=== PATIENT | female | born 1980 | race Caucasian/White ===

== ENCOUNTER 2017-09-07 18:42 | Emergency (ER) | payer OTHER ==
[2016-07-20 16:02] VITALS: Ht 162.6 cm; Wt 53.5 kg
[~2017-09-07] VITALS: Ht 162.6 cm; Wt 53.5 kg
[~2017-09-07 18:42] MED LIST: CALC500T6 PO; CEPH-13 PO; IBUP800T37 PO; LOR5/325 PO; MULT-1335 PO; ONDA4TAB PO; OTC THYROID SUPP; PREN-123 PO; TRAM-627 PO; [UNRECOGNIZED DRUG - OTHER]
[2017-09-07] MEDS ORDERED: OMEP-125 PO (18:54)
[2017-09-07] MEDS ORDERED: [UNRECOGNIZED DRUG - CODE] PO (18:54)
[2017-09-07] MEDS ORDERED: SERT-1 PO (18:54)
[2017-09-07] MEDS ORDERED: ONDANSETRON 4 MG/2 ML VIAL IVP ONE (19:10)
[2017-09-07] MEDS ORDERED: FAMOTIDINE(*) 20MG/50ML PREMIX 50 ML IVPB ONE (19:10)
[2017-09-07] MEDS ORDERED: KETOROLAC 30 MG/ML VIAL IM ONE (19:10)
[2017-09-07] MEDS ORDERED: NS(*) 0.9% 1000 ML BAG 1,000 ML IV ONE (19:10)
[2017-09-07 19:33] LABS: PLATELET COUNT, AUTOMATED 131 K/uL (150-450)
--- NOTE | 2017-09-07 20:29 | ER Report ---
History and Physical Time Seen By MD: 19:00 Hx. of Stated Complaint: PATIENT HAS BEEN VOMITING AND HAVING PAIN ON AND OFF SINCE August, PAIN IN RIGHT UPPER QUADRANT AND RADIATES TO SHOULDER, PATIENT IS SCHEDULED FOR A SCOPE BUT IT ISN'T FOR 2WEEKS, BUT SHE CAN'T HANDLE THE VOMITING AND PAIN. PATIENT DOES NOT HAV A GALLBLADDER. HPI/ROS This is an otherwise healthy 37-year-old female who is 10 years status post lap kana. She was in her usual state of health until August 14 when she started to experience midepigastric and right upper quadrant pain as well as nausea and vomiting. She was seen in the emergency department and treated supportively for her symptoms. She continued to have the symptoms intermittently and was seen in the emergency Department 2nd time. She started to take a PPI as well as adjust her diet. She started to feel better until earlier today when she ate pineapple apples and carrots and then experienced severe 10 out of 10 midepigastric and right upper quadrant pain radiating to the right shoulder. She says this is the worst episode of pain that she has had during the past month. She is scheduled to have an endoscopy in [address] Hernandez, but is worried about the source of the pain. No fever or chills. No unintentional weight loss or night sweats. Allergies: Coded Allergies: codeine (Verified Allergy, Severe, ANAPHYLAXIS, 09/07/17) Home Meds Active Scripts Pantoprazole Sodium (PANTOPRAZOLE SODIUM) 40 Mg Tablet.dr, 40 MG PO QDAY for 30 Days, #30 TAB.SR Prov:NATANAEL BECKETT MD 09/07/17 Ranitidine Hcl (ZANTAC) 150 Mg Tablet, 150 MG PO BID for 30 Days, #60 TAB Prov:NATANAEL BECKETT MD 09/07/17 Reported Medications Omeprazole (OMEPRAZOLE) 20 Mg Capsule.dr, 1 CAP PO QDAY, CAP 09/07/17 Sertraline Hcl (ZOLOFT) 50 Mg Tablet, 1 TAB PO QDAY, TAB 09/07/17 [Gb-40] No Conflict Check, 2 CAP PO BEFORE MEALS 09/07/17 Calcium Carbonate (CALCIUM) 500 Mg Tablet, 500 MG PO 07/20/16 Discontinued Reported Medications Vits W-Ca,Fe,Fa(<1MG) ( FORMULA) 1 Each Tablet, 1 EACH PO QDAY 09/11/15 Discontinued Scripts Ondansetron (ZOFRAN ODT) 4 Mg Tab.rapdis, 4 MG PO Q6H Y for NAUSEA/VOMITING, # 12 TAB.DANA Prov:SHANIKA FULLER PA-C 08/25/17 Tramadol Hcl (ULTRAM) 50 Mg Tablet, 50-100 MG PO Q4-6H, #30 TAB Prov:VANDANA SNELL MD 07/21/16 Ibuprofen (IBUPROFEN) 800 Mg Tablet, 1 TAB PO Q8H, #30 TAB Take with food every 8 hours. Prov:VANDANA SNELL MD 07/21/16 Hx Smoking: No Smoking Status: Never Smoker Exposure to Second Hand Smoke?: No Hx Substance Use Disorder: No Hx Alcohol Use: Yes Constitutional Vital Sign - Last 24 Hours 09/07/17 09/07/17 09/07/17 09/07/17 18:47 18:57 19:00 19:12 Temp 98.1 Pulse 70 64 73 Resp 20 B/P (MAP) 136/93 123/87 (99) Pulse Ox 94 96 96 O2 Delivery Room Air 09/07/17 09/07/17 09/07/17 09/07/17 19:27 19:30 19:42 19:47 Pulse 71 70 70 B/P (MAP) 113/73 (86) Pulse Ox 93 95 96 09/07/17 09/07/17 09/07/17 09/07/17 20:00 20:17 20:22 20:30 Pulse 62 63 B/P (MAP) 127/92 (104) 109/76 (87) Pulse Ox 96 95 09/07/17 09/07/17 09/07/17 09/07/17 20:37 20:52 20:57 21:17 Pulse 71 99 98 B/P (MAP) 116/63 (80) Pulse Ox 94 96 98 09/07/17 09/07/17 09/07/17 09/07/17 21:27 21:30 21:42 21:57 Pulse 74 75 83 B/P (MAP) 115/74 (88) Pulse Ox 92 95 93 09/07/17 09/07/17 09/07/17 09/07/17 22:00 22:12 22:17 22:30 Pulse 71 75 B/P (MAP) 121/88 (99) 113/74 (87) Pulse Ox 94 90 09/07/17 09/07/17 22:32 22:47 Pulse 69 70 Pulse Ox 93 94 Physical Exam General Appearance: The patient is alert, has no immediate need for airway protection and no signs of toxicity. Eyes: Pupils equal and round no pallor or injection. ENT, Mouth: Mucous membranes are moist. Respiratory: There are no retractions, lungs are clear to auscultation. Cardiovascular: Regular rate and rhythm. Gastrointestinal: Abdomen is soft and non tender, no masses, bowel sounds normal. Skin: Warm and dry, no rashes. Musculoskeletal: Neck is supple non tender. Extremities are nontender, nonswollen and have full range of motion. DIFFERENTIAL DIAGNOSIS: After history and physical exam differential diagnosis was considered for abdominal pain including but not limited to appendicitis, cholecystitis, gastritis and urinary tract infection. Medical Decision Making Data Points Result Diagram: 09/07/17 1904 09/07/17 190 Laboratory Hematology Test 09/07/17 19:04 09/07/17 20:00 09/07/17 20:08 Red Blood Count 4.69 M/uL (4.17-5.56) Mean Corpuscular Volume 92.7 fL (80.0-96.0) Mean Corpuscular Hemoglobin 32.2 pg (26.0-33.0) Mean Corpuscular Hemoglobin Concent 34.8 g/dL (32.0-36.0) Red Cell Distribution Width 13.9 % (11.5-14.5) Mean Platelet Volume 10.6 fL (7.2-11.1) Neutrophils (%) (Auto) 62.5 % (39.4-72.5) Lymphocytes (%) (Auto) 28.8 % (17.6-49.6) Monocytes (%) (Auto) 7.1 % (4.1-12.4) Eosinophils (%) (Auto) 1.2 % (0.4-6.7) Basophils (%) (Auto) 0.4 % (0.3-1.4) Nucleated RBC Relative Count (auto) 0.0 /100WBC Neutrophils # (Auto) 4.3 K/uL (2.0-7.4) Lymphocytes # (Auto) 2.0 K/uL (1.3-3.6) Monocytes # (Auto) 0.5 K/uL (0.3-1.0) Eosinophils # (Auto) 0.1 K/uL (0.0-0.5) Basophils # (Auto) 0.0 K/uL (0.0-0.1) Nucleated RBC Absolute Count (auto) 0.00 K/uL Sodium Level 140 mmol/L (137-145) Potassium Level 3.7 mmol/L (3.5-5.0) Chloride Level 100 mmol/L (98-107) Carbon Dioxide Level 26 mmol/L (22-31) Blood Urea Nitrogen 23 mg/dl (7-18) Creatinine 0.70 mg/dl (0.52-1.04) Glomerular Filtration Rate Calc > 60.0 Random Glucose 62 mg/dl (75-110) Calcium Level 9.7 mg/dl (8.4-10.2) Total Bilirubin 0.5 mg/dl (0.2-1.3) Aspartate Amino Transf (AST/SGOT) 50 U/L (0-35) Alanine Aminotransferase (ALT/SGPT) 61 U/L (0-56) Alkaline Phosphatase 76 U/L (0-126) Total Protein 8.0 gm/dl (6.3-8.2) Albumin 4.6 g/dl (3.5-5.0) Lipase 192 U/L (23-300) Human Chorionic Gonadotropin, Qual Negative (NEGATIVE) Helicobacter pylori IgG Antibody Negative (NEGATIVE) Urine Color Colorless Urine Clarity Clear Urine pH 6.0 pH (4.8-9.5) Urine Specific [place] 1.002 Urine Protein Negative mg/dL (NEGATIVE) Urine Glucose (UA) Negative mg/dL (NEGATIVE) Urine Ketones Negative mg/dL (NEGATIVE) Urine Blood Negative (NEGATIVE) Urine Nitrite Negative (NEGATIVE) Urine Bilirubin Negative (NEGATIVE) Urine Urobilinogen Negative mg/dL (0.2-1.9) Urine Leukocyte Esterase Negative (NEGATIVE) Urine RBC None /HPF (0-2/HPF) Urine WBC None /HPF (0-5/HPF) Urine Squamous Epithelial Cells Many /LPF (</=FEW) Urine Bacteria Few /HPF (NONE-FEW) Urine Mucus None /HPF (NONE-FEW) Chemistry Test 09/07/17 19:04 09/07/17 20:00 1/4/18 20:08 White Blood Count 6.9 k/uL (4.5-11.0) Red Blood Count 4.69 M/uL (4.17-5.56) Hemoglobin 15.1 g/dL (12.0-16.0) Hematocrit 43.5 % (34.0-47.0) Mean Corpuscular Volume 92.7 fL (80.0-96.0) Mean Corpuscular Hemoglobin 32.2 pg (26.0-33.0) Mean Corpuscular Hemoglobin Concent 34.8 g/dL (32.0-36.0) Red Cell Distribution Width 13.9 % (11.5-14.5) Platelet Count 131 K/uL (150-450) Mean Platelet Volume 10.6 fL (7.2-11.1) Neutrophils (%) (Auto) 62.5 % (39.4-72.5) Lymphocytes (%) (Auto) 28.8 % (17.6-49.6) Monocytes (%) (Auto) 7.1 % (4.1-12.4) Eosinophils (%) (Auto) 1.2 % (0.4-6.7) Basophils (%) (Auto) 0.4 % (0.3-1.4) Nucleated RBC Relative Count (auto) 0.0 /100WBC Neutrophils # (Auto) 4.3 K/uL (2.0-7.4) Lymphocytes # (Auto) 2.0 K/uL (1.3-3.6) Monocytes # (Auto) 0.5 K/uL (0.3-1.0) Eosinophils # (Auto) 0.1 K/uL (0.0-0.5) Basophils # (Auto) 0.0 K/uL (0.0-0.1) Nucleated RBC Absolute Count (auto) 0.00 K/uL Glomerular Filtration Rate Calc > 60.0 Calcium Level 9.7 mg/dl (8.4-10.2) Total Bilirubin 0.5 mg/dl (0.2-1.3) Aspartate Amino Transf (AST/SGOT) 50 U/L (0-35) Alanine Aminotransferase (ALT/SGPT) 61 U/L (0-56) Alkaline Phosphatase 76 U/L (0-126) Total Protein 8.0 gm/dl (6.3-8.2) Albumin 4.6 g/dl (3.5-5.0) Lipase 192 U/L (23-300) Human Chorionic Gonadotropin, Qual Negative (NEGATIVE) Helicobacter pylori IgG Antibody Negative (NEGATIVE) Urine Color Colorless Urine Clarity Clear Urine pH 6.0 pH (4.8-9.5) Urine Specific [place] 1.002 Urine Protein Negative mg/dL (NEGATIVE) Urine Glucose (UA) Negative mg/dL (NEGATIVE) Urine Ketones Negative mg/dL (NEGATIVE) Urine Blood Negative (NEGATIVE) Urine Nitrite Negative (NEGATIVE) Urine Bilirubin Negative (NEGATIVE) Urine Urobilinogen Negative mg/dL (0.2-1.9) Urine Leukocyte Esterase Negative (NEGATIVE) Urine RBC None /HPF (0-2/HPF) Urine WBC None /HPF (0-5/HPF) Urine Squamous Epithelial Cells Many /LPF (</=FEW) Urine Bacteria Few /HPF (NONE-FEW) Urine Mucus None /HPF (NONE-FEW) Urinalysis Test 09/07/17 20:08 Urine Color Colorless Urine Clarity Clear Urine pH 6.0 pH (4.8-9.5) Urine Specific [place] 1.002 Urine Protein Negative mg/dL (NEGATIVE) Urine Glucose (UA) Negative mg/dL (NEGATIVE) Urine Ketones Negative mg/dL (NEGATIVE) Urine Blood Negative (NEGATIVE) Urine Nitrite Negative (NEGATIVE) Urine Bilirubin Negative (NEGATIVE) Urine Urobilinogen Negative mg/dL (0.2-1.9) Urine Leukocyte Esterase Negative (NEGATIVE) Urine RBC None /HPF (0-2/HPF) Urine WBC None /HPF (0-5/HPF) Urine Squamous Epithelial Cells Many /LPF (</=FEW) Urine Bacteria Few /HPF (NONE-FEW) Urine Mucus None /HPF (NONE-FEW) ED Course/Re-evaluation ED Course 37-year-old female 10 years status post lap ankur. Has been in her usual state of very good health until August 14 when she started to experience intermittent mid epigastric and right upper quadrant pain which radiates to the shoulder. Pain is associated with eating spicy foods or citrus foods. She has tried omeprazole 20 mg daily, but does not take it regularly. She has a mild transaminitis and her lipase is the high end of normal. Does not drink alcohol. Has 2 small children, and is currently nursing her youngest. The pain is associated with eating. Today she was feeling better and ate pineapple apples and carrots at which point she developed severe 10 out of 10 mid epigastric pain. Pain was improved by the time she came to the emergency department. She had a normal right upper quadrant ultrasound to evaluate for a retained stone in the common bile duct. Both the liver and common bile duct appeared normal on ultrasound. Given her ongoing pain and vomiting for the past month, I also elected to do a CT scan to evaluate for a portal vein thrombosis or underlying malignancy. CT scan of the abdomen and pelvis with IV contrast was performed and only finding was mild constipation and a questionable chronic partial small bowel obstruction. She was given Pepcid and Protonix in the ED, and has not had any further symptoms. Her H. pylori was negative. Talking with her further she does say that she takes quite a bit of [id number] vitamins and supplements. I think her symptoms are likely an esophagitis versus ulcer disease. She is scheduled to have an endoscopy with Dr. Hernandez in 2 weeks. I counseled her to avoid spicy or citrus foods until then, and to discontinue her vitamin and ndjq-[id number] medication use. I also counseled her to take Zantac and Protonix daily. She will follow-up with Dr. Hernandez to go as far as the findings of her CT scan. Decision to Disposition Date: Sep 07, 2017 Decision to Disposition Time: 23:12 Depart Departure Latest Vital Signs Vital Signs Date Time Temp Pulse Resp B/P (MAP) Pulse Ox O2 Delivery O2 Flow Rate FiO2 09/07/17 22:47 70 94 09/07/17 22:30 113/74 (87) 09/07/17 18:47 98.1 20 Room Air Impression: Primary Impression: Epigastric pain Condition: Improved Disposition: HOME OR SELF-CARE New Scripts Pantoprazole Sodium (PANTOPRAZOLE SODIUM) 40 Mg Tablet.dr 40 MG PO QDAY for 30 Days, #30 TAB.SR Prov: NATANAEL BECKETT MD 09/07/17 Ranitidine Hcl (ZANTAC) 150 Mg Tablet 150 MG PO BID for 30 Days, #60 TAB Prov: NATANAEL BECKETT MD 09/07/17 Patient Instructions: Gastroesophageal Reflux Disease (ED) NATANAEL BECKETT MD Sep 07, 2017 20:29
--- NOTE | 2017-09-07 20:32 | RADIOLOGY IMAGING REPORT ---
FACILITY: [facility] - [place] PATIENT NAME: Karo Ashley : 1980 MR: [id number] V: [id number] EXAM DATE: ORDERING PHYSICIAN: NATANAEL BECKETT TECHNOLOGIST: [place] [facility] [place] Karo [place] : 1980 Visit/Account:[id number] Date of Sevice: 09/07/2017 INDICATION: evaluate for retained stone in CBD s/p lap ankur. DATE: 09/07/2017 8:18 PM. TECHNIQUE: Grayscale and color ultrasound imaging was performed of the abdomen with attention to the right upper quadrant. COMPARISON: Ultrasound of May 12, 2009. FINDINGS: The pancreas is grossly unremarkable. The IVC and aorta are patent within the imaged region. The right lobe of the liver measures 13 cm. Echogenicity appears normal. Gallbladder is nonvisualized. The common bile duct measures approximately 6 mm. No stones are identif ied sonographically. The right kidney measures 9.4 x 5.0 x 5.8 cm. No hydronephrosis or collecting system obstruction. IMPRESSION: Surgically absent gallbladder. The common bile duct measures 6 mm. No stone is identified sonographic ally. Report Dictated By: Hilda Chau MD at 09/07/2017 8:18 PM Report E-Signed By: Hilda Chau MD at 09/07/2017 8:28 PM WSN:[id number]
[2017-09-07] MEDS ORDERED: IOPAMIDOL 76% 75 ML INFUS BTL 75 ML ONE (20:59)
[2017-09-07] MEDS ORDERED: NS 0.9% 50 ML VIAL 50 ML ONE ×2 (20:59→21:11)
[2017-09-07] MEDS ORDERED: IOPAMIDOL 76% 50 ML INFUS BTL 50 ML ONE (21:11)
--- NOTE | 2017-09-07 21:46 | RADIOLOGY IMAGING REPORT ---
FACILITY: [facility] - [place] PATIENT NAME: Karo Ashley : 1980 MR: [id number] V: [id number] EXAM DATE: ORDERING PHYSICIAN: NATANAEL BECKETT TECHNOLOGIST: Location: [facility] - [place] Patient: Karo Ashley : 1980 Visit/Account:[id number] Date of Sevice: 09/07/2017 EXAMINATION: CT abdomen with IV contrast CT pelvis with IV contrast History: Intermittent worsening right upper quadrant and mid epigastric pain. TECHNIQUE: Spiral scan was through the abdomen and pelvis during injection of nonionic iodinated in travenous contrast. One of the following dose optimization techniques was utilized in the performance of this exam: Automated exposure control; adjustment of the mA and/or kV according to the patient's size; or use of an iterative reconstruction technique. Specific details can be referenced in the [facility]'s radiology CT exam operational policy. Contrast: 75 mL of IV Isovue-370. COMPARISON STUDIES: none. FINDINGS: Lower chest: negative Liver / biliary: Status post cholecystectomy. Pancreas: negative Spleen: negative Adrenal glands: negative Kidneys / retroperitoneum: negative Pelvic structures: negative Bowel / peritoneum / mesenteries: Moderate to large amount of stool throughout the colon. There is fe calization of small bowel contents. Vessels: negative Musculoskeletal / Body wall: negative Lymph node assessment: negative IMPRESSION: 1. No evidence of acute abdominal or pelvic pathology. 2. Moderate to large amount of stool throughout the colon suggests constipation. Additionally, there is fecalization of contents in the small bowel which can be seen with chronic partial small bowel obs truction. 3. Cholecystectomy. Report Dictated By: Amish aPrrish MD at 09/07/2017 9:30 PM Report E-Signed By: Amish Parrish MD at 09/07/2017 9:41 PM WSN:[id number]
[2017-09-07 22:30] VITALS: BP 113/74
[2017-09-07] MEDS ORDERED: PANTOPRAZOLE SOD(*)40 MG VIAL 40 MG in NS(*) 0.9% 100 ML BAG 100 ML IVPB ONE (22:40)
[2017-09-07] MEDS ORDERED: RANI-324 PO (23:16)
[2017-09-07] MEDS ORDERED: PANT40TA65 PO (23:16)
== END 2017-09-07 23:24 | disposition home or self-care (01) ==
LOC: ER 18:54
DX: K59.00 Constipation, unspecified (principal); Z90.49 Acquired absence of other specified parts of digestive tract
CPT/HCPCS: 74177; 76705; 81001; 83690; 84703; 85025; 86644; 86645; 86677; 96361; 96365; 96372; 96375; 99284; C9113; J1885; J2405; J3490; J7030; J7050; Q9967; 82040; 82247; 82310; 82374; 82435; 82565; 82947; 84075; 84132; 84155; 84295; 84450; 84460; 84520

== ENCOUNTER → 2017-09-15 | Outpatient (CLI) | payer OTHER ==
[2016-07-20 16:02] VITALS: Ht 162.6 cm; Wt 54.4 kg
[~2017-09-15] VITALS: Ht 162.6 cm; Wt 54.4 kg
[~2017-09-15] MED LIST changes: +BARIUM SULFATE 600 ML SUSP ONE; +LIDOCAINE/SOD BICARB 8.4% SYR ID ONE; +MIDAZOLAM 2 MG/2 ML VIAL IVP PRN; +NORMOSOL R SOLN(*) 1000 ML BAG 1,000 ML IV PRN; +OMEP-125 PO; +PANT40TA65 PO; +RANI-324 PO; +SERT-1 PO; +[UNRECOGNIZED DRUG - CODE] PO
--- NOTE | 2017-09-15 14:37 | RADIOLOGY IMAGING REPORT ---
FACILITY: [facility] PATIENT NAME: Karo Ashley : 1980 MR: [id number] V: [id number] EXAM DATE: ORDERING PHYSICIAN: ERLIN BAEZ TECHNOLOGIST: Location: [facility] - [place] Patient: Karo Ashley : 1980 Visit/Account:[id number] Date of Sevice: 09/15/2017 Exam type: SMALL BOWEL SERIES History: Right upper quadrant pain x1 month Comparison: CT abdomen pelvis September 07, 2017. Findings: The preliminary microsoft dynamics manager architect film of abdomen reveals a moderate amount of fecal material throughout colon wh ich can be seen with constipation. The patient was given a barium suspension to swallow which was followed throughout the normal-appeari ng small bowel to the unremarkable terminal ileum. Transit time to the right-sided colon was 35 gamaliel celestino. No abnormality mucosal pattern was seen. There is no evidence of bowel distention or extrinsic mass effect IMPRESSION: 1. Unremarkable small bowel follow-through Report Dictated By: Natalya Tarango MD at 09/15/2017 2:32 PM Report E-Signed By: Natalya Tarango MD at 09/15/2017 2:33 PM WSN:[email or web address]
== END ==
LOC: RAD 09-11 12:04
PROVIDERS: ATTEND Surgery
DX: R10.9 Unspecified abdominal pain (principal); R93.3 Abnormal findings on diagnostic imaging of other parts of digestive tract
CPT/HCPCS: 74250

== ENCOUNTER 2018-04-14 12:04 | Emergency (ER) | payer OTHER ==
[2016-07-20 16:02] VITALS: Wt 56.7 kg
[~2018-04-14 12:04] MED LIST changes: -BARIUM SULFATE 600 ML SUSP ONE; -LIDOCAINE/SOD BICARB 8.4% SYR ID ONE; -MIDAZOLAM 2 MG/2 ML VIAL IVP PRN; -NORMOSOL R SOLN(*) 1000 ML BAG 1,000 ML IV PRN; -RANI-324 PO; +RANI-366 PO
--- NOTE | 2018-04-14 12:07 | ER Report ---
History and Physical Time Seen By MD: 12:07 HPI/ROS CHIEF COMPLAINT: Dizziness HISTORY OF PRESENT ILLNESS: Patient is a 38-year-old otherwise healthy female who presents to emergency department complaining of frontal headache, fuzzy thinking nausea but no vomiting also with complaint of nasal and sinus congestion with pressure. No fevers. Patient states that she feels as if she is "drunk". She states symptoms began after a head injury that occurred after she had been doing some drinking and fell and hit her head. She has been seen in urgent care about 2 times was diagnosed with serous otitis media as well as sinusitis and placed on a course of Augmentin this did not help her symptoms she is continuing Advil and Mucinex. Patient has had no imaging of the brain her sinuses done at this point. She is not anticoagulated. REVIEW OF SYSTEMS: Constitutional: No fever, no chills. Eyes: No discharge. Blurry vision, no double vision ENT: No sore throat. Cardiovascular: No chest pain, no palpitations. Respiratory: No cough, no shortness of breath. Gastrointestinal: No abdominal pain, no vomiting. Genitourinary: No hematuria. Musculoskeletal: No back pain. Skin: No rashes. Neurological: Frontal headache worse leaning forward Allergies: Coded Allergies: codeine (Verified Allergy, Severe, ANAPHYLAXIS, 04/14/18) ITCHY AND COULD'T BREATH VERY WELL Home Meds Active Scripts Oxymetazoline Hcl (AFRIN) 30 Ml Garrett, 2 SPR JAGDEEP BID, #1 BOT 0 Refills discontinue after 5 days Prov:BRONSON WING MD 04/14/18 Pseudoephedrine Hcl (SUDAFED 12-HOUR) 120 Mg Tablet.er, 120 MG PO Q12H for 10 Days, #20 TAB 0 Refills Prov:BRONSON WING MD 04/14/18 Amoxicillin/Pot Clav 875-125 Mg Tab (AUGMENTIN 875-125 TABLET) 1 Each Tablet, 1 TAB PO Q12H for 10 Days, #20 TAB 0 Refills Prov:BRONSON WING MD 04/14/18 Reported Medications Sertraline Hcl (ZOLOFT) 50 Mg Tablet, 1 TAB PO QDAY, TAB 09/07/17 Discontinued Reported Medications Omeprazole (OMEPRAZOLE) 20 Mg Capsule.dr, 1 CAP PO QDAY, CAP 09/07/17 [Gb-[id number]] No Conflict Check, 2 CAP PO BEFORE MEALS 09/07/17 Past Medical/Surgical History Gastroesophageal reflux disease Hx Smoking: No Smoking Status: Never Smoker Exposure to Second Hand Smoke?: No Hx Substance Use Disorder: No Hx Alcohol Use: No Constitutional Vital Sign - Last 24 Hours 04/14/18 04/14/18 04/14/18 04/14/18 12:09 12:10 12:19 12:30 Temp 97.8 Pulse 65 70 Resp 12 B/P (MAP) 128/61 (83) 128/61 122/76 (91) Pulse Ox 96 96 O2 Delivery Room Air 04/14/18 04/14/18 04/14/18 04/14/18 12:34 12:49 13:04 13:05 Pulse 70 63 ??? B/P (MAP) 112/74 (87) Pulse Ox 97 95 04/14/18 04/14/18 04/14/18 13:30 13:34 13:49 Pulse ? B/P (MAP) 106/65 (79) Intake and Output 04/14/18 04/14/18 04/15/18 15:00 23:00 07:00 Intake Total 1000 ml Balance 1000 ml Physical Exam General/Constitutional: Patient is awake, alert, nontoxic and in no acute respiratory distress. Head: Normocephalic and atraumatic. Eyes: Conjunctival clear, Pupils are equal and reactive to light. Extraocular muscles are intact and symmetrical. Sclera are clear and anicteric. No nystagmus noted Ears:External canals are clear. Tympanic membranes are clear with normal landmarks and light reflex. Nares: No rhinorrhea or bleeding. Turbinates are pink and moist. Oropharyngeal: Mucous membranes are dry. There is no pharyngeal erythema or exudate. There are no palatal petechiae. Uvula is midline and symmetrical. Posterior wall cobblestoning noted Neck: Supple, no adenopathy. Cardiovascular: Heart is regular rate and rhythm without audible murmurs, rubs or gallops. Pulmonary: Lungs are clear to auscultation bilaterally. There are no wheezes, rales, or rhonchi. Chest rise is symmetrical Abdomen: Soft, nontender, no guarding or peritoneal signs. Extremities: No gross deformities, No peripheral cyanosis. Able to move all 4 extremities. Neuro: Alert and oriented X3, Cranial nerves 2 thru 12 are intact and symmetrical. Skin: No rashes, skin is warm dry and well perfused. Medical Decision Making Data Points Result Diagram: 04/14/18 1245 04/14/18 1245 Laboratory Hematology Test 04/14/18 12:45 04/14/18 13:05 Red Blood Count 4.49 M/uL (4.17-5.56) Mean Corpuscular Volume 94.2 fL (80.0-96.0) Mean Corpuscular Hemoglobin 33.3 pg (26.0-33.0) Mean Corpuscular Hemoglobin Concent 35.4 g/dL (32.0-36.0) Red Cell Distribution Width 14.1 % (11.5-14.5) Mean Platelet Volume 9.1 fL (7.2-11.1) Neutrophils (%) (Auto) 53.6 % (39.4-72.5) Lymphocytes (%) (Auto) 33.9 % (17.6-49.6) Monocytes (%) (Auto) 9.7 % (4.1-12.4) Eosinophils (%) (Auto) 2.2 % (0.4-6.7) Basophils (%) (Auto) 0.6 % (0.3-1.4) Nucleated RBC Relative Count (auto) 0.0 /100WBC Neutrophils # (Auto) 3.2 K/uL (2.0-7.4) Lymphocytes # (Auto) 2.0 K/uL (1.3-3.6) Monocytes # (Auto) 0.6 K/uL (0.3-1.0) Eosinophils # (Auto) 0.1 K/uL (0.0-0.5) Basophils # (Auto) 0.0 K/uL (0.0-0.1) Nucleated RBC Absolute Count (auto) 0.00 K/uL Sodium Level 140 mmol/L (137-145) Potassium Level 3.6 mmol/L (3.5-5.0) Chloride Level 106 mmol/L (98-107) Carbon Dioxide Level 26 mmol/L (22-31) Blood Urea Nitrogen 39 mg/dl (7-18) Creatinine 0.80 mg/dl (0.52-1.04) Glomerular Filtration Rate Calc > 60.0 Random Glucose 84 mg/dl (75-110) Calcium Level 9.6 mg/dl (8.4-10.2) Magnesium Level 2.1 mg/dl (1.7-2.2) Total Bilirubin 0.3 mg/dl (0.2-1.3) Aspartate Amino Transf (AST/SGOT) 26 U/L (0-35) Alanine Aminotransferase (ALT/SGPT) 33 U/L (0-56) Alkaline Phosphatase 38 U/L (0-126) Total Protein 7.3 g/dl (6.3-8.2) Albumin 4.5 g/dl (3.5-5.0) Salicylates Level < 10 mg/L Salicylate Last Dose Date unk Acetaminophen Level < 10 ug/ml Serum Alcohol < 10 mg/dl Urine Color Straw Urine Clarity Clear Urine pH 5.0 pH (4.8-9.5) Urine Specific [place] 1.008 Urine Protein Negative mg/dL (NEGATIVE) Urine Glucose (UA) Negative mg/dL (NEGATIVE) Urine Ketones Negative mg/dL (NEGATIVE) Urine Blood Negative (NEGATIVE) Urine Nitrite Negative (NEGATIVE) Urine Bilirubin Negative (NEGATIVE) Urine Urobilinogen Negative mg/dL (0.2-1.9) Urine Leukocyte Esterase Negative (NEGATIVE) Urine RBC None /HPF (0-2/HPF) Urine WBC <1 /HPF (0-5/HPF) Urine Squamous Epithelial Cells Many /LPF (</=FEW) Urine Bacteria Negative /HPF (NONE-FEW) Urine Mucus None /HPF (NONE-FEW) Urine HCG, Qualitative Negative (NEGATIVE) Urine Opiates Screen Negative Urine Barbiturates Screen Negative Ur Tricyclic Antidepressants Screen Negative Urine Phencyclidine Screen Negative Urine Amphetamines Screen Negative Urine Benzodiazepines Screen Negative Urine Cocaine Screen Negative Urine Cannabinoids Screen Negative Chemistry Test 04/14/18 12:45 04/14/18 13:05 White Blood Count 5.9 k/uL (4.5-11.0) Red Blood Count 4.49 M/uL (4.17-5.56) Hemoglobin 14.9 g/dL (12.0-16.0) Hematocrit 42.3 % (34.0-47.0) Mean Corpuscular Volume 94.2 fL (80.0-96.0) Mean Corpuscular Hemoglobin 33.3 pg (26.0-33.0) Mean Corpuscular Hemoglobin Concent 35.4 g/dL (32.0-36.0) Red Cell Distribution Width 14.1 % (11.5-14.5) Platelet Count 158 K/uL (150-450) Mean Platelet Volume 9.1 fL (7.2-11.1) Neutrophils (%) (Auto) 53.6 % (39.4-72.5) Lymphocytes (%) (Auto) 33.9 % (17.6-49.6) Monocytes (%) (Auto) 9.7 % (4.1-12.4) Eosinophils (%) (Auto) 2.2 % (0.4-6.7) Basophils (%) (Auto) 0.6 % (0.3-1.4) Nucleated RBC Relative Count (auto) 0.0 /100WBC Neutrophils # (Auto) 3.2 K/uL (2.0-7.4) Lymphocytes # (Auto) 2.0 K/uL (1.3-3.6) Monocytes # (Auto) 0.6 K/uL (0.3-1.0) Eosinophils # (Auto) 0.1 K/uL (0.0-0.5) Basophils # (Auto) 0.0 K/uL (0.0-0.1) Nucleated RBC Absolute Count (auto) 0.00 K/uL Glomerular Filtration Rate Calc > 60.0 Calcium Level 9.6 mg/dl (8.4-10.2) Magnesium Level 2.1 mg/dl (1.7-2.2) Total Bilirubin 0.3 mg/dl (0.2-1.3) Aspartate Amino Transf (AST/SGOT) 26 U/L (0-35) Alanine Aminotransferase (ALT/SGPT) 33 U/L (0-56) Alkaline Phosphatase 38 U/L (0-126) Total Protein 7.3 g/dl (6.3-8.2) Albumin 4.5 g/dl (3.5-5.0) Salicylates Level < 10 mg/L Salicylate Last Dose Date unk Acetaminophen Level < 10 ug/ml Serum Alcohol < 10 mg/dl Urine Color Straw Urine Clarity Clear Urine pH 5.0 pH (4.8-9.5) Urine Specific [place] 1.008 Urine Protein Negative mg/dL (NEGATIVE) Urine Glucose (UA) Negative mg/dL (NEGATIVE) Urine Ketones Negative mg/dL (NEGATIVE) Urine Blood Negative (NEGATIVE) Urine Nitrite Negative (NEGATIVE) Urine Bilirubin Negative (NEGATIVE) Urine Urobilinogen Negative mg/dL (0.2-1.9) Urine Leukocyte Esterase Negative (NEGATIVE) Urine RBC None /HPF (0-2/HPF) Urine WBC <1 /HPF (0-5/HPF) Urine Squamous Epithelial Cells Many /LPF (</=FEW) Urine Bacteria Negative /HPF (NONE-FEW) Urine Mucus None /HPF (NONE-FEW) Urine HCG, Qualitative Negative (NEGATIVE) Urine Opiates Screen Negative Urine Barbiturates Screen Negative Ur Tricyclic Antidepressants Screen Negative Urine Phencyclidine Screen Negative Urine Amphetamines Screen Negative Urine Benzodiazepines Screen Negative Urine Cocaine Screen Negative Urine Cannabinoids Screen Negative Toxicology Test 04/14/18 12:45 04/14/18 13:05 Salicylates Level < 10 mg/L Salicylate Last Dose Date unk Acetaminophen Level < 10 ug/ml Serum Alcohol < 10 mg/dl Urine Opiates Screen Negative Urine Barbiturates Screen Negative Ur Tricyclic Antidepressants Screen Negative Urine Phencyclidine Screen Negative Urine Amphetamines Screen Negative Urine Benzodiazepines Screen Negative Urine Cocaine Screen Negative Urine Cannabinoids Screen Negative Urinalysis Test 04/14/18 13:05 Urine Color Straw Urine Clarity Clear Urine pH 5.0 pH (4.8-9.5) Urine Specific [place] 1.008 Urine Protein Negative mg/dL (NEGATIVE) Urine Glucose (UA) Negative mg/dL (NEGATIVE) Urine Ketones Negative mg/dL (NEGATIVE) Urine Blood Negative (NEGATIVE) Urine Nitrite Negative (NEGATIVE) Urine Bilirubin Negative (NEGATIVE) Urine Urobilinogen Negative mg/dL (0.2-1.9) Urine Leukocyte Esterase Negative (NEGATIVE) Urine RBC None /HPF (0-2/HPF) Urine WBC <1 /HPF (0-5/HPF) Urine Squamous Epithelial Cells Many /LPF (</=FEW) Urine Bacteria Negative /HPF (NONE-FEW) Urine Mucus None /HPF (NONE-FEW) Urine HCG, Qualitative Negative (NEGATIVE) EKG/Imaging EKG Interpretation EKG shows normal sinus rhythm with a ventricular rate of 65 bpm. Monitor Interpretation: Normal Sinus Rhythm Imaging FACILITY: [facility] [place] PATIENT NAME: Karo Ashley : 1980 MR: [id number] V: [id number] EXAM DATE: ORDERING PHYSICIAN: BRONSON WING TECHNOLOGIST: Location: [facility] [place] Patient: Karo Ashley : 1980 Visit/Account:[id number] Date of Sevice: 04/14/2018 EXAMINATION: CT head without IV contrast HISTORY: Dizziness. COMPARISON: None. TECHNIQUE: Contiguous axial images were obtained from the skull base to the vertex without intravenous contrast. Sagittal and coronal reformatted images are also submitted. One of the following dose optimization techniques was utilized in the performance of this exam: Automated exposure control; adjustment of the mA and/ or kV according to the patient's size; or use of an iterative reconstruction technique. Specific details can be referenced in the facility's radiology CT exam operational policy. FINDINGS: Brain volume: Normal. Ventricles: Normal. Acute ischemic changes: None. Hemorrhage: No acute intracranial hemorrhage. Masses/edema: None. Hubbard-white: Negative. White matter: Normal. Vessels: Negative. Extra-axial: Negative. Calvarium/scalp: Negative. Skull base/visualized face: Negative. Visualized sinuses/orbits: Mild mucosal thickening in the right maxillary sinus. IMPRESSION: No acute hemorrhage or intracranial mass lesion. No CT evidence of acute infarct. Report Dictated By: Jayna Chery MD at 04/14/2018 1:41 PM Report E-Signed By: Jayna Chery MD at 04/14/2018 1:42 PM WSN:[id number] FACILITY: [facility] [place] PATIENT NAME: Karo Ashley : 1980 MR: [id number] V: [id number] EXAM DATE: [id number] ORDERING PHYSICIAN: BRONSON WING TECHNOLOGIST: Location: [facility] [place] Patient: Karo Ashley : 1980 Visit/Account:[id number] Date of Sevice: 04/14/2018 EXAMINATION: CT sinus without IV contrast HISTORY: Dizziness. COMPARISON: CT head from 04/14/2018. TECHNIQUE: Contiguous axial images were obtained through the paranasal sinuses without intravenous contrast administration. Coronal and sagittal reformatted images were obtained from the axial source data. One of the following dose optimization techniques was utilized in the performance of this exam: Automated exposure control; adjustment of the mA and/ or kV according to the patient's size; or use of an iterative reconstruction technique. Specific details can be referenced in the facility's radiology CT exam operational policy. FINDINGS: Maxillary sinuses: Small air-fluid level in the right maxillary sinus. Frontal sinuses: The frontal sinuses are hypoplastic. The frontal sinuses are clear. Ethmoid air cells: Mild mucosal thickening in the bilateral ethmoid air cells. Sphenoid sinuses: The left sphenoid sinus is larger than the right, which is a normal variant. The intersinus septum inserts on the anterior wall of the right carotid canal. Sphenoid sinuses are clear. Ostiomeatal units: Patent. Nasal septum/nasal cavity: Negative. Orbits: Negative. Visualized intracranial contents/soft tissues: Negative. TMJs: Negative. IMPRESSION: Mild nonobstructive inflammation of the right maxillary sinuses and bilateral ethmoid air cells. Report Dictated By: Jayna Chery MD at 04/14/2018 1:42 PM Report E-Signed By: Jayna Chery MD at 04/14/2018 1:52 PM WSN:[id number] ED Course/Re-evaluation ED Course 04/14/2018 12:41:20 pm symptoms are consistent with 2 possible etiologies one would be a postconcussive syndrome based on history of the head injury patient does have history local features and physical exam findings for sinusitis. We' ll perform CT of the head and sinuses. We'll check basic labs EKG we will give IV fluids. Decision to Disposition Date: Apr 14, 2018 Decision to Disposition Time: 14:04 Depart Departure Latest Vital Signs Vital Signs Date Time Temp Pulse Resp B/P (MAP) Pulse Ox O2 Delivery O2 Flow Rate FiO2 04/14/18 13:49 ??? 04/14/18 13:30 106/65 (79) 04/14/18 12:49 95 04/14/18 12:10 97.8 12 Room Air Impression: Primary Impression: Acute suppuration of maxillary sinus Condition: Improved Disposition: HOME OR SELF-CARE Referrals: BHARATHI GARCES JR, MD 2 Weeks New Scripts Oxymetazoline Hcl (AFRIN) 30 Ml Garrett 2 SPR JAGDEEP BID, #1 BOT 0 Refills discontinue after 5 days Prov: BRONSON WING MD 04/14/18 Pseudoephedrine Hcl (SUDAFED 12-HOUR) 120 Mg Tablet.er 120 MG PO Q12H for 10 Days, #20 TAB 0 Refills Prov: BRONSON WING MD 04/14/18 Amoxicillin/Pot Clav 875-125 Mg Tab (AUGMENTIN 875-125 TABLET) 1 Each Tablet 1 TAB PO Q12H for 10 Days, #20 TAB 0 Refills Prov: BRONSON WING MD 04/14/18 Patient Instructions: Sinusitis (ED) Additional Instructions: Discontinue use of Mucinex, start Sudafed in place and take as directed. Take the antibiotics as directed until complete. Call to schedule a follow-up appointment with Dr. Bharathi Garces ear nose and throat. We will provide you with the contact information. BRONSON WING MD Apr 14, 2018 12:07
[2018-04-14] MEDS ORDERED: NS(*) 0.9% 1000 ML BAG 1,000 ML IV ONE (12:21)
--- NOTE | 2018-04-14 12:45 | EKG ---
FACILITY: [facility] PATIENT NAME: ILANA SILVA : [id number] MR: [id number] V: [id number] EXAM DATE: ORDERING PHYSICIAN: BRONSON WING TECHNOLOGIST: BRIGIDA Test Reason : DIZZINESS Blood Pressure : / mmHG Vent. Rate : 065 BPM Atrial Rate : 065 BPM P-R Int : 144 ms QRS Dur : 080 ms QT Int : 408 ms P-R-T Axes : 061 063 044 degrees QTc Int : 424 ms Normal sinus rhythm Normal ECG No previous ECGs available Confirmed by Cullen Ernandez ([id number]) on 04/14/2018 6:31:09 PM Referred By: MECCA Confirmed By:Cullen Wilkes
[2018-04-14 12:56] LABS: PLATELET COUNT, AUTOMATED 158 K/uL (150-450)
[2018-04-14 13:30] VITALS: BP 106/65
--- NOTE | 2018-04-14 13:45 | RADIOLOGY IMAGING REPORT ---
FACILITY: [facility] PATIENT NAME: Karo Ashley : 1980 MR: [id number] V: [id number] EXAM DATE: ORDERING PHYSICIAN: BRONSON WING TECHNOLOGIST: Location: [facility] [place] Patient: Karo Ashley : 1980 Visit/Account:[id number] Date of Sevice: 04/14/2018 EXAMINATION: CT head without IV contrast HISTORY: Dizziness. COMPARISON: None. TECHNIQUE: Contiguous axial images were obtained from the skull base to the vertex without intraven ous contrast. Sagittal and coronal reformatted images are also submitted. One of the following dose optimization techniques was utilized in the performance of this exam: Autom ated exposure control; adjustment of the mA and/or kV according to the patient's size; or use of an i terative reconstruction technique. Specific details can be referenced in the facility's radiology C T exam operational policy. FINDINGS: Brain volume: Normal. Ventricles: Normal. Acute ischemic changes: None. Hemorrhage: No acute intracranial hemorrhage. Masses/edema: None. Hubbard-white: Negative. White matter: Normal. Vessels: Negative. Extra-axial: Negative. Calvarium/scalp: Negative. Skull base/visualized face: Negative. Visualized sinuses/orbits: Mild mucosal thickening in the right maxillary sinus. IMPRESSION: No acute hemorrhage or intracranial mass lesion. No CT evidence of acute infarct. Report Dictated By: Jayna Chery MD at 04/14/2018 1:41 PM Report E-Signed By: Jayna Chery MD at 04/14/2018 1:42 PM WSN:[id number]
--- NOTE | 2018-04-14 13:57 | RADIOLOGY IMAGING REPORT ---
FACILITY: [facility] [place] PATIENT NAME: Karo Ashley : 1980 MR: [id number] V: [id number] EXAM DATE: ORDERING PHYSICIAN: BRONSON WING TECHNOLOGIST: Location: [facility] [place] Patient: Karo Ashley : 1980 Visit/Account:[id number] Date of Sevice: 04/14/2018 EXAMINATION: CT sinus without IV contrast HISTORY: Dizziness. COMPARISON: CT head from 04/14/2018. TECHNIQUE: Contiguous axial images were obtained through the paranasal sinuses without intravenous c ontrast administration. Coronal and sagittal reformatted images were obtained from the axial source d laex. One of the following dose optimization techniques was utilized in the performance of this exam: Autom ated exposure control; adjustment of the mA and/or kV according to the patient's size; or use of an i terative reconstruction technique. Specific details can be referenced in the facility's radiology C T exam operational policy. FINDINGS: Maxillary sinuses: Small air-fluid level in the right maxillary sinus. Frontal sinuses: The frontal sinuses are hypoplastic. The frontal sinuses are clear. Ethmoid air cells: Mild mucosal thickening in the bilateral ethmoid air cells. Sphenoid sinuses: The left sphenoid sinus is larger than the right, which is a normal variant. The in tersinus septum inserts on the anterior wall of the right carotid canal. Sphenoid sinuses are clear. Ostiomeatal units: Patent. Nasal septum/nasal cavity: Negative. Orbits: Negative. Visualized intracranial contents/soft tissues: Negative. TMJs: Negative. IMPRESSION: Mild nonobstructive inflammation of the right maxillary sinuses and bilateral ethmoid air cells. Report Dictated By: Jayna Chery MD at 04/14/2018 1:42 PM Report E-Signed By: Jayna Chery MD at 04/14/2018 1:52 PM WSN:[id number]
[2018-04-14] MEDS ORDERED: PSEU120T68 PO (14:06)
[2018-04-14] MEDS ORDERED: OXYM-1 ENA (14:06)
[2018-04-14] MEDS ORDERED: AMOX-559 PO (14:06)
== END 2018-04-14 14:21 | disposition home or self-care (01) ==
LOC: ER 12:09
DX: J01.00 Acute maxillary sinusitis, unspecified (principal); K21.9 Gastro-esophageal reflux disease without esophagitis; Z79.899 Other long term (current) drug therapy
CPT/HCPCS: 70450; 70486; 80305; 80320; 80329; 81001; 81025; 83735; 84443; 85025; 93005; 96360; 99284; J7030; 82040; 82247; 82310; 82374; 82435; 82565; 82947; 84075; 84132; 84155; 84295; 84450; 84460; 84520